=== PATIENT | female | born 1995 | race Two or more races ===

== ENCOUNTER 2021-07-24 17:00 | Emergency (ER) | payer SELFPAY ==
[~2021-07-24] VITALS: Ht 157.5 cm; Wt 61.2 kg
[2021-07-24 21:52] LABS: BILIRUBIN,URINE NEGATIVE (NEG); CLARITY,URINE CLOUDY; COLOR,URINE YELLOW; NITRITE,URINE NEGATIVE (NEG); PROTEIN,URINE NEGATIVE (NEG-TRACE)
[2021-07-24 21:52] LABS: BASO # 0.1 x10^3/uL (0.0-0.2); BASO % 0 % (0-3); EOS % 0 % (0-3); HEMATOCRIT 37.4 % (36.0-47.0); HEMOGLOBIN 12.6 g/dL (12.0-15.5); LYMPH # 1.3 x10^3/uL (1.0-4.8); LYMPH % 7 % (24-48); MEAN CORPUSCULAR HEMOGLOBIN 28 pg (25-35); MEAN CORPUSCULAR HGB CONC 34 g/dL (31-37); MEAN CORPUSCULAR VOLUME 83 fL (79-100); MONO # 1.8 x10^3/uL (0.0-1.1); MONO % 10 % (0-9); NEUT # 15.1 x10^3/uL (1.8-7.7); NEUT % 83 % (31-73); PLATELET COUNT 231 x10^3/uL (140-400); RED BLOOD COUNT 4.51 x10^6/uL (3.50-5.40); RED CELL DISTRIBUTION WIDTH 13.9 % (11.5-14.5); WHITE BLOOD COUNT 18.1 x10^3/uL (4.0-11.0)
[2021-07-24] MEDS: IV NORMAL SALINE 1000ML BAG 1,000 ML IV SCH ×2 (21:54→23:00)
[2021-07-24 21:57] LABS: BACTERIA,URINE MODERATE /HPF (0-FEW); RBC,URINE OCC /HPF (0-2)
[2021-07-24] MEDS ORDERED: ACETAMINOPHEN 500 MG TABLET PO ONE (22:00)
[2021-07-24] MEDS ORDERED: ONDANSETRON PF 4 MG/2 ML VIAL. IVP ONE (22:00)
[2021-07-24 22:05] LABS: INFLUENZA A PATIENT NEGATIVE (NEGATIVE); INFLUENZA B PATIENT NEGATIVE (NEGATIVE)
[2021-07-24 22:10] LABS: ALBUMIN 3.1 g/dL (3.4-5.0); ALBUMIN/GLOBULIN RATIO 0.6 (1.0-1.7); CALCIUM 8.7 mg/dL (8.5-10.1); CREATININE 0.9 mg/dL (0.6-1.0); GFR 76.3; TOTAL BILIRUBIN 0.5 mg/dL (0.2-1.0); TOTAL PROTEIN 8.6 g/dL (6.4-8.2)
[2021-07-24 22:27] LABS: % BANDS 9 % (0-9); % LYMPHS 14 % (24-48); % MONOS 5 % (0-10); % SEGS 72 % (35-66); PLT ESTIMATE ADEQUATE (ADEQUATE); TOXIC GRANULATION SLIGHT
[2021-07-24] MEDS ORDERED: cefTRIAXone IV Push 1 GM VIAL. IVP ONE (22:30)
--- NOTE | 2021-07-24 23:08 | RAD ---
EXAMINATION: CT abdomen pelvis without IV contrast INDICATION: Fever, UTI COMPARISONS: None TECHNIQUE: Axial 5 mm thick sections were obtained without oral or IV contrast. Sagittal and coronal reformats were obtained. FINDINGS: KIDNEYS AND RENAL COLLECTING SYSTEMS RIGHT KIDNEY AND URETER: No evidence of right renal or ureteric calculi. No hydronephrosis. No focal renal lesions, within the limits of this noncontrast examination. LEFT KIDNEY AND URETER: There is edematous enlargement of the left kidney. There is perinephric inflammation. There is urothe lial thickening within the collecting system to the level of the ureteropelvic junction. No evidence of left renal or ureteric calculi. No hydronephrosis. No focal renal lesions, within the limits of th is noncontrast examination. URINARY BLADDER: Unremarkable. OTHER: Visualized lung bases are clear. The liver, gallbladder, spleen, adrenals, and pancreas are unremarka ble. Stomach is unremarkable. Small and large bowel is normal in course and caliber. There is a moderate a mount of stool within the proximal and transverse colon. Appendix is normal. No free intra-abdominal air or free fluid. There are a few prominent retroperitoneal lymph nodes adjacent to the left kidney, likely reactive. Vasculature appears normal in course and caliber. Normal uterus is present with a normally positioned IUD. Adnexa are unremarkable. Anterior abdominal wall is normal. No acute osseous abnormalities. IMPRESSION: Inflammatory changes of the left kidney and proximal ureter, consistent with urinary tract infection/ pyelonephritis. No evidence of obstructing uropathy. Correlation with urinalysis. PRQS compliance statement - One or more of the following individualized dose reduction techniques wer e utilized for this study: 1. Automated exposure control 2. Adjustment of the mA and/or kV according to patient size 3. Use of iterative reconstruction technique Electronically signed by: Brody Shah DO (07/24/2021 11:06 PM) [facility]
[2021-07-24 23:28] VITALS: BP 109/60
--- NOTE | 2021-07-24 23:31 | RAD ---
EXAM: XR CHEST 1V 07/24/2021 9:11 PM CLINICAL INDICATION: Fever COMPARISON: None TECHNIQUE: AP view of the chest FINDINGS: The heart and mediastinum are normal. Lungs are well-expanded and clear. No consolidatio n, pleural effusion, or pneumothorax. Pulmonary vascularity is normal. The thoracic skeleton is int act. IMPRESSION: No acute cardiopulmonary abnormality. Electronically signed by: Tasneem Munoz MD (07/24/2021 11:28 PM) [id number]
--- NOTE | 2021-07-25 | PHYS DOC ---
Past Medical History Past Surgical History: Smoking Status: Never Smoker Alcohol Use: None General Adult EDM: Chief Complaint: NAUSEA/VOMITING/DIARRHEA HPI: HPI: Patient is a 26 year old female presenting to the ED today complaining of subjective fevers, nausea, vomiting, symptoms began 3 days ago. Denies any abdominal pain. Denies any chest pain or shortness of breath. Denies any cough. Reports slight headache. Review of Systems: Review of Systems: Constitutional: Reports fever Eyes: Denies change in visual acuity. [] HENT: Denies nasal congestion or sore throat. [] Respiratory: Denies cough or shortness of breath. [] Cardiovascular: Denies chest pain or edema. [] GI: Reports nausea and vomiting. Denies abdominal pain, bloody stools or diarrhea. [] : Denies dysuria. [] Musculoskeletal: Denies back pain or joint pain. [] Integument: Denies rash. [] Neurologic: Reports slight headache, denies focal weakness or sensory changes. [] Psychiatric: Denies depression or anxiety. [] Heart Score: C/O Chest Pain: N/A Risk Factors: Risk Factors: DM, Current or recent (<one month) smoker, HTN, HLP, family history of CAD, obesity. Risk Scores: Score 0 - 3: 2.5% MACE over next 6 weeks - Discharge Home Score 4 - 6: 20.3% MACE over next 6 weeks - Admit for Clinical Observation Score 7 - 10: 72.7% MACE over next 6 weeks - Early Invasive Strategies Current Medications: Current Medications Medications (Trade) Dose Ordered Sig/Justin Start Time Stop Time Status Last Admin Dose Admin Acetaminophen (Tylenol) 1,000 mg 1X ONCE 07/24/21 22:00 07/24/21 22:01 DC 07/24/21 21:53 1,000 MG Ceftriaxone Sodium (Rocephin) 1 gm 1X ONCE 07/24/21 22:30 07/24/21 22:31 DC 07/24/21 23:25 1 GM Ondansetron HCl (Zofran) 4 mg 1X ONCE 07/24/21 22:00 07/24/21 22:01 DC 07/24/21 21:53 4 MG Sodium Chloride 1,000 ml @ 1,000 mls/hr Q1H 07/24/21 22:00 07/24/21 23:29 DC 07/24/21 23:00 1,000 MLS/HR Allergies: Allergies: Allergies Coded Allergies Type Severity Reaction Last Updated Verified No Known Drug Allergies 07/24/21 No Physical Exam: PE: Constitutional: Well developed, well nourished, no acute distress, non-toxic appearance. [] HENT: Normocephalic, atraumatic, bilateral external ears normal, oropharynx moist, no oral exudates, nose normal. [] Eyes: PERRLA, EOMI, conjunctiva normal, no discharge. [] Neck: Normal range of motion, no tenderness, supple, no stridor. [] Cardiovascular:Heart rate regular rhythm, no murmur [] Lungs & Thorax: Bilateral breath sounds clear to auscultation [] Abdomen: Bowel sounds normal, soft, no tenderness, no masses, no pulsatile masses. [] Skin: Warm, dry, no erythema, no rash. [] Back: No tenderness, no CVA tenderness. [] Extremities: No tenderness, no cyanosis, no clubbing, ROM intact, no edema. [] Neurologic: Alert and oriented X 3, normal motor function, normal sensory function, no focal deficits noted. [] Psychologic: Affect normal, judgement normal, mood normal. [] Current Patient Data: Labs: Laboratory Tests Test 07/24/21 21:43 07/24/21 21:44 07/24/21 21:45 07/24/21 21:46 Influenza Type A Antigen Negative (NEGATIVE) Influenza Type B Antigen Negative (NEGATIVE) SARS-CoV-2 Antigen (Rapid) Negative (NEGATIVE) Urine Collection Type Unknown Urine Color Yellow Urine Clarity Cloudy Urine pH 7.0 (<5.0-8.0) Urine Specific [place] <=1.005 (1.000-1.030) Urine Protein Negative mg/dL (NEG-TRACE) Urine Glucose (UA) Negative mg/dL (NEG) Urine Ketones (Stick) 40 mg/dL (NEG) Urine Blood Moderate (NEG) Urine Nitrite Negative (NEG) Urine Bilirubin Negative (NEG) Urine Urobilinogen Dipstick 1.0 mg/dL (0.2 mg/dL) Urine Leukocyte Esterase Moderate (NEG) Urine RBC Occ /HPF (0-2) Urine WBC 11-20 /HPF (0-4) Urine Squamous Epithelial Cells Many /LPF Urine Bacteria Moderate /HPF (0-FEW) White Blood Count 18.1 x10^3/uL (4.0-11.0) H Red Blood Count 4.51 x10^6/uL (3.50-5.40) Hemoglobin 12.6 g/dL (12.0-15.5) Hematocrit 37.4 % (36.0-47.0) Mean Corpuscular Volume 83 fL (79-100) Mean Corpuscular Hemoglobin 28 pg (25-35) Mean Corpuscular Hemoglobin Concent 34 g/dL (31-37) Red Cell Distribution Width 13.9 % (11.5-14.5) Platelet Count 231 x10^3/uL (140-400) Neutrophils (%) (Auto) 83 % (31-73) H Lymphocytes (%) (Auto) 7 % (24-48) L Monocytes (%) (Auto) 10 % (0-9) H Eosinophils (%) (Auto) 0 % (0-3) Basophils (%) (Auto) 0 % (0-3) Neutrophils # (Auto) 15.1 x10^3/uL (1.8-7.7) H Lymphocytes # (Auto) 1.3 x10^3/uL (1.0-4.8) Monocytes # (Auto) 1.8 x10^3/uL (0.0-1.1) H Eosinophils # (Auto) 0.0 x10^3/uL (0.0-0.7) Basophils # (Auto) 0.1 x10^3/uL (0.0-0.2) Segmented Neutrophils % 72 % (35-66) H Band Neutrophils % 9 % (0-9) Lymphocytes % 14 % (24-48) L Monocytes % 5 % (0-10) Toxic Granulation Slight Dohle Bodies Present Platelet Estimate Adequate (ADEQUATE) Sodium Level 132 mmol/L (136-145) L Potassium Level 3.0 mmol/L (3.5-5.1) L Chloride Level 94 mmol/L (98-107) L Carbon Dioxide Level 26 mmol/L (21-32) Anion Gap 12 (6-14) Blood Urea Nitrogen 8 mg/dL (7-20) Creatinine 0.9 mg/dL (0.6-1.0) Estimated GFR (Cockcroft-Gault) 76.3 BUN/Creatinine Ratio 9 (6-20) Glucose Level 102 mg/dL (70-99) H Calcium Level 8.7 mg/dL (8.5-10.1) Total Bilirubin 0.5 mg/dL (0.2-1.0) Aspartate Amino Transferase (AST) 46 U/L (15-37) H Alanine Aminotransferase (ALT) 141 U/L (14-59) H Alkaline Phosphatase 216 U/L (46-116) H Total Protein 8.6 g/dL (6.4-8.2) H Albumin 3.1 g/dL (3.4-5.0) L Albumin/Globulin Ratio 0.6 (1.0-1.7) L Procalcitonin 8.80 ng/mL (0.00-0.10) H POC Urine HCG, Qualitative Hcg negative (Negative) Test 07/24/21 22:05 Lactic Acid Level 1.0 mmol/L (0.4-2.0) Laboratory Tests 07/24/21 21:45 Laboratory Tests 07/24/21 21:45 Vital Signs: Vital Signs Date Time Temp Pulse Resp B/P (MAP) Pulse Ox O2 Delivery O2 Flow Rate FiO2 07/24/21 17:52 101.4 136 12 116/72 (87) 98 Room Air 101.4 EKG: EKG: [] Radiology/Procedures: Radiology/Procedures: PROCEDURE: CT ABDOMEN PELVIS WO CONTRAST EXAMINATION: CT abdomen pelvis without IV contrast INDICATION: Fever, UTI COMPARISONS: None TECHNIQUE: Axial 5 mm thick sections were obtained without oral or IV contrast. Sagittal and coronal reformats were obtained. FINDINGS: KIDNEYS AND RENAL COLLECTING SYSTEMS RIGHT KIDNEY AND URETER: No evidence of right renal or ureteric calculi. No hydronephrosis. No focal renal lesions, within the limits of this noncontrast examination. LEFT KIDNEY AND URETER: There is edematous enlargement of the left kidney. There is perinephric inflammation. There is urothelial thickening within the collecting system to the level of the ureteropelvic junction. No evidence of left renal or ureteric calculi. No hydronephrosis. No focal renal lesions, within the limits of this noncontrast examination. URINARY BLADDER: Unremarkable. OTHER: Visualized lung bases are clear. The liver, gallbladder, spleen, adrenals, and pancreas are unremarkable. Stomach is unremarkable. Small and large bowel is normal in course and caliber. There is a moderate amount of stool within the proximal and transverse colon. Appendix is normal. No free intra-abdominal air or free fluid. There are a few prominent retroperitoneal lymph nodes adjacent to the left kidney, likely reactive. Vasculature appears normal in course and caliber. Normal uterus is present with a normally positioned IUD. Adnexa are unremarkable. Anterior abdominal wall is normal. No acute osseous abnormalities. IMPRESSION: Inflammatory changes of the left kidney and proximal ureter, consistent with urinary tract infection/pyelonephritis. No evidence of obstructing uropathy. Correlation with urinalysis. PRQS compliance statement - One or more of the following individualized dose reduction techniques were utilized for this study: 1. Automated exposure control 2. Adjustment of the mA and/or kV according to patient size 3. Use of iterative reconstruction technique Electronically signed by: Babatunde Shah DO (07/24/2021 11:06 PM) [facility] DICTATED and SIGNED BY: BABATUNDE SHAH DO DATE: 07/24/21 [id number] PROCEDURE: PORTABLE CHEST 1V EXAM: XR CHEST 1V 07/24/2021 9:11 PM CLINICAL INDICATION: Fever COMPARISON: None TECHNIQUE: AP view of the chest FINDINGS: The heart and mediastinum are normal. Lungs are well-expanded and clear. No consolidation, pleural effusion, or pneumothorax. Pulmonary vascularity is normal. The thoracic skeleton is intact. IMPRESSION: No acute cardiopulmonary abnormality. Electronically signed by: Tasneem Munoz MD (07/24/2021 11:28 PM) [id number] DICTATED and SIGNED BY: TASNEEM MUNOZ MD DATE: 07/24/21 [id number] 0 Course & Med Decision Making: Course & Med Decision Making Pertinent Labs and Imaging studies reviewed. (See chart for details) This is a 26-year-old female patient presenting to the ED today complaining of fevers, nausea vomiting, symptoms began 3 days ago. Vitals on arrival to the ED temperature 101.4, heart rate 136, respiration 12 on room air, blood pressure 116/72, O2 sats 98%. CBC with a WBC of 18.1 and a left shift. CMP with potassium of 3.0, oral potassium given. Sodium 132, glucose is normal, AST 46, ALT 141, ALK 216, no abdominal pain. Urine noted for moderate amount of blood, moderate amount of leukocytes, moderate amount of bacteria, WBCs 11-20. Lactic is normal, procalcitonin 8.80 Chest x-ray is negative, negative influenza a and B, negative rapid COVID test. Patient was given IV fluids and Rocephin IV in the ED. She was set up for admission, I went to talk to her, she states she cannot be admitted to the hospital because she has a 3-month-old baby and needs to go home to breast-feed and take care of the baby. Discussed with Dr. Berrios. Discharged on cefdinir. Provided strict return precautions. Dragon Disclaimer: Dragon Disclaimer: This electronic medical record was generated, in whole or in part, using a voice recognition dictation system. Departure Departure Impression: Primary Impression: Fever Qualified Codes: R50.9 - Fever, unspecified Additional Impressions: Acute pyelonephritis Transaminitis Hypokalemia Nausea and vomiting Qualified Codes: R11.2 - Nausea with vomiting, unspecified Disposition: 01 HOME / SELF CARE / HOMELESS Condition: STABLE Referrals: NO PCP (PCP) follow up with your doctor in 3days ARNOLD ZABALA DO follow up in 3-5 days Patient Instructions: Fever, Adult, Hypokalemia, Pyelonephritis, Adult Additional Instructions: You were evaluated in the emergency room and noted to have a kidney infection. We put you on antibiotics, start taking them tomorrow. Please take Tylenol or Motrin for pain or fever. Push fluids. Follow-up with your doctor or the provided urologist in the next 3 days. Come back to the ED at any point symptoms worsen. Scripts Ondansetron (ONDANSETRON ODT) 4 Mg Tab.rapdis 1 TAB PO PRN Q6-8HRS, #16 TAB Prov: ISIDRA HARRISON [employer] 07/25/21 Cefdinir (CEFDINIR) 300 Mg Capsule 1 CAP PO BID, #14 CAP Prov: ISIDRA HARRISON [employer] 07/25/21 ISIDRA HARRISON [employer] Jul 25, 2021 00:00
[2021-07-25] MEDS ORDERED: CEFD300C PO (00:07)
[2021-07-25] MEDS ORDERED: ONDA4TAB12 PO (00:08)
[2021-07-25] MEDS ORDERED: POTASSIUM CHLORIDE 20 MEQ TABLET.ER. PO ONE (00:30)
--- NOTE | 2021-07-25 09:04 | EKG ---
[facility] [address] [place] [address] Test Date: 2021-07-24 Test Time: 21:59:28 Pat Name: REINA DENISE Department: Room: Gender: F Online Publisher: : 1995 Requested By: ISIDRA HARRISON Order Number: [id number] Reading MD: Leon Rolle MD Measurements Intervals [place] Rate: 118 P: 39 RI: 128 QRS: 27 QRSD: 84 T: 11 QT: 308 QTc: 434 Interpretive Statements SINUS TACHYCARDIA Electronically Signed On 07-27-2021 8:50:48 BIN OPERATOR by Leon Rolle MD
--- NOTE | 2021-07-26 10:46 | NUR ---
informed patient of negative covid results. Patient verbalized understanding.
== END 2021-07-25 00:24 | disposition home or self-care (01) ==
LOC: ER 17:00
DX: N10 Acute pyelonephritis (principal); R74.01 Elevation of levels of liver transaminase levels; E87.6 Hypokalemia; Z20.822 Contact with and (suspected) exposure to COVID-19
CPT/HCPCS: 36415; 71045; 74176; 80053; 81001; 81025; 83605; 84145; 85007; 85025; 87040; 87086; 87426; 87804; 93005; 96361; 96374; 96375; 99285; J0696; J2405; J7030; U0003; U0005